=== PATIENT | female | born 2000 | race Hispanic/Latino ===

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

== ENCOUNTER 2021-06-30 12:41 | Observation (INO) | payer BC ==
[~2021-06-30] VITALS: Ht 165.1 cm; Wt 104.8 kg
[2021-06-30 13:47] LABS: BASOPHILS % (AUTO) 0.2 % (0.0-5.0); EOSINOPHILS % (AUTO) 0.2 % (0.0-8.0); HEMATOCRIT 40.7 % (36-48); LYMPHOCYTES % (AUTO) 9.9 % (21.0-51.0); MEAN CORPUSCULAR HEMOGLOBIN 26.2 pg (27.0-33.0); MEAN CORPUSCULAR HGB CONC 32.4 g/dL (32.0-36.0); MEAN CORPUSCULAR VOLUME 80.9 fL (80-100); MONOCYTES % (AUTO) 8.2 % (3.0-13.0); NEUTROPHILS % (AUTO) 80.9 % (40.0-77.0); PLATELET COUNT (AUTO) 389 K/uL (130-400); RED BLOOD CELL COUNT(AUTO) 5.03 MIL/uL (4.00-5.50); RED CELL DISTRIBUTION WIDTH 13.9 % (11.0-15.5); WHITE BLOOD COUNT (AUTO) 20.4 K/uL (4.8-10.8)
[2021-06-30 13:50] LABS: ALBUMIN 3.7 g/dL (3.5-5.0); BILIRUBIN,TOTAL 0.7 mg/dL (0.2-1.0); POTASSIUM 3.8 mmol/L (3.5-5.1); TOTAL PROTEIN, SERUM 9.3 g/dL (6.0-8.3)
[2021-06-30 13:57] LABS: CRP QUANTITATIVE 193.9 mg/L (0.00-9.0)
[2021-06-30] MEDS ORDERED: ACETAMINOPHEN WITH CODEINE 1 TAB TAB PO ONE (14:00)
[2021-06-30] MEDS ORDERED: MAG/ALUM/SIMETH 30 ML UDCUP PO ONE (14:00)
[2021-06-30 14:03] LABS: CREATININE 0.7 mg/dL (0.5-1.5)
[2021-06-30] MEDS ORDERED: IOHEXOL-350 50ML VIAL IV ONE (14:10)
[2021-06-30] MEDS ORDERED: LIDOCAINE HCL 2% VISCOUS 15 ML UDCUP ONE (14:27)
[2021-06-30] MEDS: CLINDAMYCIN IVPB 600MG/50ML 50 ML IV SCH ×3 (14:29→22:17)
[2021-06-30] MEDS ORDERED: ACETAMINOPHEN 325 MG TAB PO PRN ×2 (16:30)
[2021-06-30] MEDS ORDERED: MORPHINE 2 MG SYG IV PRN (16:30)
[2021-06-30] MEDS ORDERED: ONDANSETRON 4MG INJ IV PRN (16:30)
[2021-06-30] MEDS ORDERED: MORPHINE 4 MG SYG IV PRN (16:30)
[2021-06-30] MEDS ORDERED: DEXAMETHASONE SOD PHOSPHATE 4 MG/ML 1ML VIAL IVP SCH (16:45)
[2021-06-30] MEDS: 0.9%NACL 1000ML 1,000 ML IV SCH (20:00)
[2021-06-30] MEDS: FAMOTIDINE 20MG VIAL IV SCH (22:17)
[2021-06-30] MEDS: DEXAMETHASONE SOD PHOSPHATE 4 MG/ML 1ML VIAL IVP SCH (22:17)
[2021-06-30 22:45] VITALS: BP 109/61
[2021-07-01 00:04] VITALS: BP 107/67
[2021-07-01] MEDS: CLINDAMYCIN IVPB 600MG/50ML 50 ML IV SCH ×3 (00:30→06:32)
[2021-07-01 04:04] VITALS: BP 105/64
[2021-07-01] MEDS: 0.9%NACL 1000ML 1,000 ML IV SCH (04:35)
[2021-07-01 05:58] LABS: BASOPHILS % (AUTO) 0.1 % (0.0-5.0); EOSINOPHILS % (AUTO) 0.1 % (0.0-8.0); HEMATOCRIT 37.4 % (36-48); LYMPHOCYTES % (AUTO) 5.3 % (21.0-51.0); MEAN CORPUSCULAR HEMOGLOBIN 26.5 pg (27.0-33.0); MEAN CORPUSCULAR HGB CONC 32.9 g/dL (32.0-36.0); MEAN CORPUSCULAR VOLUME 80.6 fL (80-100); NEUTROPHILS % (AUTO) 91.9 % (40.0-77.0); PLATELET COUNT (AUTO) 387 K/uL (130-400); RED BLOOD CELL COUNT(AUTO) 4.64 MIL/uL (4.00-5.50); RED CELL DISTRIBUTION WIDTH 13.7 % (11.0-15.5); WHITE BLOOD COUNT (AUTO) 19.4 K/uL (4.8-10.8)
[2021-07-01 06:11] LABS: CREATININE 0.5 mg/dL (0.5-1.5); POTASSIUM 4.1 mmol/L (3.5-5.1)
[2021-07-01] MEDS: DEXAMETHASONE SOD PHOSPHATE 4 MG/ML 1ML VIAL IVP SCH ×3 (06:30→22:05)
[2021-07-01 07:48] LABS: ERYTHROCYTE SEDIMENTATION RATE 83 MM/HR (0-20)
[2021-07-01 08:00] VITALS: BP 102/60
[2021-07-01 12:00] VITALS: BP 102/64
[2021-07-01] MEDS: FAMOTIDINE 20MG VIAL IV SCH (12:05)
[2021-07-01] MEDS ORDERED: AMP/SULBAC 3GM+NS 100ML IV SCH (14:00)
[2021-07-01] MEDS ORDERED: [UNRECOGNIZED DRUG - MIXTURE] IV SCH (14:00)
[2021-07-01 16:00] VITALS: BP 90/58
[2021-07-01] MEDS: AMP/SULBAC 3GM+NS 100ML IV SCH ×2 (16:28→22:05)
[2021-07-01] MEDS: 0.9%NACL 100ML 100 ML IV SCH ×2 (16:29→22:05)
[2021-07-01] MEDS ORDERED: KETOROLAC 15MG/ML VIAL (15MG/ML) IV PRN (18:30)
[2021-07-01 20:08] VITALS: BP 102/64
[2021-07-02 00:40] VITALS: BP 95/50
[2021-07-02 04:00] VITALS: BP 109/68
[2021-07-02] MEDS: AMP/SULBAC 3GM+NS 100ML IV SCH ×3 (04:00→13:42)
[2021-07-02] MEDS: 0.9%NACL 100ML 100 ML IV SCH ×3 (04:00→13:42)
[2021-07-02] MEDS: DEXAMETHASONE SOD PHOSPHATE 4 MG/ML 1ML VIAL IVP SCH ×2 (06:40→13:43)
[2021-07-02 06:56] LABS: BASOPHILS % (AUTO) 0.2 % (0.0-5.0); EOSINOPHILS % (AUTO) 0.8 % (0.0-8.0); HEMATOCRIT 37.6 % (36-48); LYMPHOCYTES % (AUTO) 8.1 % (21.0-51.0); MEAN CORPUSCULAR HEMOGLOBIN 26.2 pg (27.0-33.0); MEAN CORPUSCULAR HGB CONC 32.2 g/dL (32.0-36.0); MEAN CORPUSCULAR VOLUME 81.6 fL (80-100); MONOCYTES % (AUTO) 4.9 % (3.0-13.0); NEUTROPHILS % (AUTO) 85.3 % (40.0-77.0); PLATELET COUNT (AUTO) 398 K/uL (130-400); RED BLOOD CELL COUNT(AUTO) 4.61 MIL/uL (4.00-5.50); RED CELL DISTRIBUTION WIDTH 13.8 % (11.0-15.5); WHITE BLOOD COUNT (AUTO) 23.4 K/uL (4.8-10.8)
[2021-07-02 07:09] LABS: CREATININE 0.7 mg/dL (0.5-1.5); CRP QUANTITATIVE 74.2 mg/L (0.00-9.0)
[2021-07-02 08:00] VITALS: BP 98/69
[2021-07-02 12:00] VITALS: BP 107/64
[2021-07-02 16:00] VITALS: BP 99/68
[2021-07-02] MEDS ORDERED: AMOX600S16 PO (16:01)
== END 2021-07-02 18:00 | disposition home or self-care (01) ==
LOC: EDH 12:41 → EDHIP 16:09 → 3BH 22:40
PROVIDERS: ADMIT Internal Medicine; ATTEND Internal Medicine
DX: J36 Peritonsillar abscess (principal); D72.829 Elevated white blood cell count, unspecified; E86.0 Dehydration; E66.9 Obesity, unspecified; T38.0X5A Adverse effect of glucocorticoids and synthetic analogues, initial encounter; Z79.899 Other long term (current) drug therapy
CPT/HCPCS: 36415 ×3; 70490; 80048 ×2; 80053; 81025; 84145; 85025 ×3; 85651; 86140 ×3; 96361 ×2; 96365; 96366 ×2; 96367; 96375 ×3; 96376 ×2; 99284; G0378 ×49; J0295 ×6; J1100 ×7; J1885; J3490 ×5; J7030; Q9967